=== PATIENT | female | born 1980 | race Two or more races ===

== ENCOUNTER 2018-07-23 14:50 | Outpatient (CLI) | payer OTHER | END 2018-07-23 14:59 | disposition home or self-care (01) | LOC: RAD 501 14:50 | DX: R05 Cough (principal) ==

== ENCOUNTER 2018-07-23 15:26 | Inpatient (IN) | payer OTHER ==
[~2018-07-23] VITALS: Ht 160 cm; Wt 61.7 kg
[2018-08-02] MEDS ORDERED: IRON PO (13:04)
== END 2018-08-10 12:06 | disposition home or self-care (01) | DRG 743 ==
LOC: O/R 08-08 06:41 → SURG-SUITE 08-08 06:41 → SURH 08-08 10:45 → SURG-SUITE 08-08 13:01
PROVIDERS: ADMIT Obstetrics & Gynecology
PROC: 0UT70ZZ Resection of Bilateral Fallopian Tubes, Open Approach (ICD-10-PCS; 2018-08-08)
PROC: 0UT90ZZ Resection of Uterus, Open Approach (ICD-10-PCS; principal; 2018-08-08 10:45)
DX: D25.1 Intramural leiomyoma of uterus (principal); N80.1 Endometriosis of ovary; D26.1 Other benign neoplasm of corpus uteri; N80.0 Endometriosis of uterus; N73.6 Female pelvic peritoneal adhesions (postinfective)